=== PATIENT | female | born 1985 | race Hispanic/Latino ===

== ENCOUNTER 2025-03-19 17:50 | Emergency (ER) | payer OTHER ==
[~2025-03-19] VITALS: Ht 149.9 cm; Wt 74.8 kg
--- NOTE | 2025-03-19 18:07 | ERN ---
ED Note History of Present Illness Stated Complaint: PELVIC PAIN Chief Complaint: Pelvic Pain Time Seen by MD: 17:57 Time Seen by Midlevel: 18:00 Dictation: Ms. Yates is a 39-year-old female with no reported chronic health issues who presented to the emergency department this evening for evaluation of pelvic pain. She reports 3-4 days of tenderness of the labia. He states last night she noticed some white/PCP discharge without odor. She states that her reported that he had cheated on her and has a sexually transmitted infection. She does not know if he has yet received treatment. He denies having fever, chills, chest pain, palpitations, edema, shortness of breath, abdominal pain, nausea, vomiting, diarrhea, dysuria, headache, or dizziness. Allergies: Coded Allergies: No Known Drug Allergies (Unverified Allergy, Unknown, 03/19/25) Emergency Care RESIDENT PHYSICIAN IN RADIOLOGY: None Home Meds Active Scripts Metronidazole (Metronidazole) 500 Mg Tablet, 1 TAB PO BID for 7 Days, #14 TAB 0 Refills Prov:BROCK CUBA NP 03/19/25 Doxycycline Hyclate (Doxycycline Hyclate) 100 Mg Capsule, 1 CAP PO BID for 7 Days, #14 CAP 0 Refills Prov:BROCK CUBA NP 03/19/25 Past Medical History Surgical History: None PSYCH History: no pertinent psych hx Social History: Negative RN Note Reviewed/Agreed w/PFSH: Yes Review of System Dictation REVIEW OF SYSTEMS: CONSTITUTIONAL: Patient denies fevers, chills, sweats and weight changes. EYES: Patient denies any visual symptoms. EARS, NOSE, AND THROAT: No difficulties with hearing. No symptoms of rhinitis or sore throat. CARDIOVASCULAR: Patient denies chest pains, palpitations, orthopnea and paroxysmal nocturnal dyspnea. RESPIRATORY: No dyspnea on exertion, no wheezing or cough. GI: No nausea, vomiting, diarrhea, constipation, abdominal pain, hematochezia or melena. : No urinary hesitancy or dribbling. No nocturia or urinary frequency. Reports labia tenderness/irritation. Reports vaginal discharge that is white/paste the without odor. BP tested positive for STI does not know the specific MUSCULOSKELETAL: No myalgias or arthralgias. NEUROLOGIC: No chronic headaches, no seizures. Patient denies numbness, tingling or weakness. PSYCHIATRIC: Patient denies problems with mood disturbance. No problems with anxiety. ENDOCRINE: No excessive urination or excessive thirst. DERMATOLOGIC: Patient denies any rashes or skin changes. Initial Vital Sign VS Vital Signs Date Time Temp Pulse Resp B/P (MAP) Pulse Ox O2 Delivery O2 Flow Rate FiO2 03/19/25 18:05 99.0 78 16 139/87 98 Room Air* 0 21 Physical Exam Dictation Vital signs: Reviewed. Afebrile Constitutional: No acute distress. Non-toxic appearing. Head/Face: Normocephalic, atraumatic. Eyes: Periorbital areas with no swelling, redness, or edema. Lids and lashes are normal. Conjunctival injection is absent. Sclera anicteric. Pupils equal, round, reactive to light. ENT: Pinnas intact and no signs of trauma or erythema. Ear canals clear and no discharge. TMs no erythema. No nasal discharge or bleeding noted. Oropharynx with no exudate, redness, swelling, masses, exudates, or evidence of o bstruction. Uvula midline. Mucous membranes moist. Neck: Trachea midline, no masses palpated, and no cervical lymphadenopathy. No swelling. Supple, full range of motion. Chest/Axilla: No tenderness, no crepitus, no paradoxical movement, no retractions. Cardiovascular: Regular rate, regular rhythm, no murmur, no gallops. Symmetric pulses. No peripheral edema. Respiratory: Respirations even and unlabored. Lung sounds clear; no wheezes, rales or rhonchi. Gastrointestinal: Inspection is normal. No distention is appreciated. Bowel sounds are normal. No mass or organomegaly . There is no tenderness. No rebound. No rigidity. No voluntary or involuntary guarding. No Jett's sign. : Vaginal discharge white Neurological: Normal speech, gross motor function intact, gross sensory function intact. No focal weakness/Paresthesia. Musculoskeletal/Extremities: All extremities have full range of motion, no pain or tenderness on palpation. Symmetric pulses. Integumentary: Intact. Skin is normal color, warm and dry. Cap refill less than 3 seconds. Results (Laboratory/Radiology) Laboratory/Radiology Laboratory Tests Test 03/19/25 18:12 Urine Color COLORLESS (YELLOW) Urine Appearance CLEAR (CLEAR) Urine pH 5.5 (5.0-8.0) Urine Specific [place] 1.003 (1.001-1.031) Urine Protein NEGATIVE mg/dL (NEGATIVE) Urine Glucose (UA) NEGATIVE mg/dL (NEGATIVE) Urine Ketones 10 mg/dL (NEGATIVE) H Urine Occult Blood +- (TRACE) (NEGATIVE) H Urine Nitrate NEGATIVE (NEGATIVE) Urine Bilirubin NEGATIVE mg/dL (NEGATIVE) Urine Urobilinogen 0.2 mg/dL (0.2-1.0) Urine Leukocyte Esterase NEGATIVE Kody/uL Urine HCG, Qualitative NEGATIVE (NEGATIVE) ED Course ED Course Orders Procedure Category Date Status Time Urinalysis Profile LAB 03/19/25 In Process 18:05 ,Urine Test LAB 03/19/25 In Process 18:05 Ceftriaxone 500mg PHA 03/19/25 In Process Vial (Rocephin 500mg I 18:30 Doxycycline Hyclate PHA 03/19/25 In Process (Doxycycline Hyclate 18:30 Metronidazole (Flagyl) PHA 03/19/25 In Process 18:30 Chlamydia & Gc Pcr JULISA 03/19/25 Logged 18:19 Hiv 1-2 W/Reflex To LAB 03/19/25 In Process Confirm 18:19 Current Medications Medications (Trade) Dose Ordered Sig/Malu Route PRN Reason Start Time Stop Time Status Last Admin Dose Admin Ceftriaxone Sodium (Rocephin 500mg Inj) 500 mg ONCE IM 03/19/25 18:30 03/19/25 23:59 03/19/25 18:36 Doxycycline Hyclate (Doxycycline Hyclate) 100 mg ONCE PO 03/19/25 18:30 03/19/25 23:59 03/19/25 18:36 Metronidazole (flaGYL) 500 mg ONCE PO 03/19/25 18:30 03/19/25 23:59 03/19/25 18:36 Vital Signs Date Time Temp Pulse Resp B/P (MAP) Pulse Ox O2 Delivery O2 Flow Rate FiO2 03/19/25 18:05 99.0 78 16 139/87 98 0 03/19/25 18:05 99.0 78 16 139/87 98 Room Air* 0 21 Uneventful ED course. Vital signs remained stable. He received doses Flagyl, doxycycline, and Rocephin for presumed treatment for STI. She states her significant other tested positive for sexually transmitted infection but she does not know type/details. HCG negative findings discussed patient all questions Medical Decision Making MDM MDM: Differential diagnosis: STI, UTI Rationale: Tests considered and ordered secondary to shared decision making include: Previous outside records reviewed: Old ER visits. Risk of complication and/or morbidity or mortality of patient management: None Medications-Per medication reconciliation Need for hospitalization: Patient does not meet criteria for hospitalization. Need for emergency major/minor surgery: No There are no social concerns with this patient. Prescription drug management: Flagyl, doxycycline Prescriptions will include symptomatic care Patient's prior external medical records from other ER visits were reviewed by me as indicated. Prior testing and results from previous visits were reviewed. Prior tests were taken into account with medical decision making and resource utilization, independent historian/historians were used to obtain complete medical history. I independently interpreted the test that were performed, results were reviewed by me and considered findings on radiology if ordered. Medical management and examination interpretation discussions were had by me with other qualified healthcare professionals as indicated for the patient's care. DX & DISP Disposition: Discharge Departure Impression: Primary Impression: Sexually transmitted disease (STD) Condition: Stable Scripts Metronidazole (Metronidazole) 500 Mg Tablet 1 TAB PO BID for 7 Days, #14 TAB 0 Refills Prov: BROCK CUBA NP 03/19/25 Doxycycline Hyclate (Doxycycline Hyclate) 100 Mg Capsule 1 CAP PO BID for 7 Days, #14 CAP 0 Refills Prov: BROCK CUBA NP 03/19/25 Additional Instructions: Due to your symptoms and exposure risk he will be started on treatment for sexually transmitted infection/possible pelvic inflammatory disease. You will take doxycycline twice daily for14 days as well as Flagyl 500 mg twice daily14 days. Take medications until course completed. Avoid sex until you and your partner/partner are fully treated and cleared. Follow up with repeat testing and check for cure in 1-3 months. He will be advised by phone of any abnormal results. Should you experience fever, worsening pelvic pain, nausea/vomiting, fainting or severe weakness return to the emergency department or seek immediate care. Follow up with your PCP and/or case maker Time of Disposition: 18:26 BROCK CUBA NP March 19, 2025 18:07
[2025-03-19] MEDS ORDERED: DOXY100C5 PO (18:24)
[2025-03-19] MEDS ORDERED: METR-172 PO (18:24)
[2025-03-19 18:29] LABS: APPEARANCE,URINE CLEAR (CLEAR); BILIRUBIN,URINE NEGATIVE (NEGATIVE); COLOR,URINE COLORLESS (YELLOW); GLUCOSE, URINE (UA) NEGATIVE (NEGATIVE); KETONES,URINE 10 mg/dL (NEGATIVE); LEUKOCYTE ESTERASE ,URINE NEGATIVE Leu/uL (NEGATIVE); NITRATE,URINE NEGATIVE (NEGATIVE); PH,URINE 5.5 (5.0-8.0); PROTEIN,URINE NEGATIVE (NEGATIVE); UROBILINOGEN,URINE 0.2 mg/dL (0.2-1.0)
[2025-03-19 18:31] LABS: HCG,QUALITATIVE URINE NEGATIVE (NEGATIVE)
[2025-03-19 18:32] LABS: ADD UA MICROSCOPIC YES
[2025-03-19] MEDS: metRONIDazole 500 MG TABLET PO SCH (18:36)
[2025-03-19] MEDS: CEFTRIAXONE 500MG VIAL IM SCH (18:36)
[2025-03-19] MEDS: DOXYCYCLINE HYCLATE 100 MG TABLET PO SCH (18:36)
[2025-03-19 19:06] LABS: BACTERIA,URINE RARE /HPF (None Seen); MUCUS,URINE RARE LPF (None Seen); SQUAMOUS EPITHELIAL CELL,UR FEW /HPF (0-2); WBC,URINE 0-1 /HPF (0-1)
[2025-03-19 19:12] LABS: HIV 1&2 ANTIBODY Non-Reactive (Negative); HIV-1 p24 Antigen Non-Reactive (Negative)
[2025-03-19 19:23] VITALS: BP 130/82; PULSE 78; RESP 16; TEMP 98.5; O2SAT 98
== END 2025-03-19 19:23 | disposition home or self-care (01) ==
LOC: EDH 18:07
DX: A64 Unspecified sexually transmitted disease (principal); Z79.899 Other long term (current) drug therapy
CPT/HCPCS: 99283; 87491; 87591; 86701; 87390; 81001; 81025; 36415; 96372; J0696

== ENCOUNTER 2025-05-18 17:18 | Emergency (ER) | payer OTHER ==
[~2025-05-18] VITALS: Ht 152.4 cm; Wt 72.6 kg
[~2025-05-18 17:18] MED LIST: DOXY100C5 PO; METR-172 PO
--- NOTE | 2025-05-18 21:14 | ERN ---
General Chief Complaint: Hand Problem/Injury Stated Complaint: LT HAND TINGLING/NUMB FOR 3-4 DAYS Time Seen by MD: 17:21 Time Seen by Midlevel: 17:21 Source: patient History of Present Illness Initial Comments 39-year-old female who presents to the emergency department due to left hand/fingers tingling x4 days. Denies numbness or tingling radiating up the arm, left arm pain, decreased range of motion, neck pain or further associated symptoms. 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 Patient denies significant past medical history. Allergies: Coded Allergies: No Known Drug Allergies (Unverified Allergy, Unknown, 03/19/25) Home Meds Active Scripts Metronidazole (Metronidazole) 500 Mg Tablet, 1 TAB PO BID for 7 Days, #14 TAB 0 Refills Prov:BROCK CUBA NP 03/19/25 Doxycycline Hyclate (Doxycycline Hyclate) 100 Mg Capsule, 1 CAP PO BID for 7 Days, #14 CAP 0 Refills Prov:BROCK CUBA NP 03/19/25 Past Medical History Past Medical History: No Pertinent History Past Surgical History: None Social History Social History: Negative ROS Dictation Constitutional: Negative for fever,chills, and weight loss Eyes: Negative for injury, pain,redness, and discharge ENT: Negative for injury,pain or swelling Cardiovascular: Negative for chest pain, palpitations, and edema Respiratory: Negative for shortness of breath, cough, and wheezing, Abdomen/GI: Negative for abdominal pain, nausea, vomiting, diarrhea, and constipation Back: Negative for injury and pain : Negative for painful urination, bleeding or discharge MS/Extremity: Positive for left fingers tingling Negative for injury and deformity Skin: Negative for rash, and discoloration Neuro: Negative for headache, weakness, numbness, tingling, and seizure Psych: Negative for suicide ideation, homicidal ideation, and hallucinations Physical Exam Physical Exam Dictation General: awake, alert, no acute distress Head/Face: Normocephalic, atraumatic Eyes: PERRL, EOMI, normal conjunctiva ENT: oral cavity clear, oral mucosa moist Neck: Supple, normal range of motion Cardiovascular: RRR, normal S1/S2 Respiratory: CTAB, no respiratory distress Skin: Warm, dry, normal turgor, no rash MS/Extremity: Pulses equal, no cyanosis, neurovascular intact, FROM. Left upper extremity normal range of motion, no tenderness, normal sensation. Neuro: COAx4, GCS 15, no neurological deficits, normal gait Psych: Normal behavior, mood, and affect normal Results Laboratory and Microbiology Lab and Micro Result Laboratory Tests Test 05/18/25 19:39 Serum Test, Qualitative NEGATIVE (NEGATIVE) Labs Reviewed?: Yes EKG/XRAY/US/CT/MRI X-RAY Comment REASON: pain ORDERING PHYSICIAN: VINAYAK GEORGE PROCEDURE: CERV 2 3VW - CERV SPINE 2-3VWS EXAM: CR Cervical spine, 3 views. CLINICAL HISTORY: Pain. COMPARISON: None provided. FINDINGS: Straightening of the expected cervical lordosis reflects paraspinal muscle spasm. Mild spondylosis. Moderate degenerative disc space narrowing at C5-C6. The remaining disc spaces are maintained. Normal vertebral body heights. No acute fracture. The prevertebral soft tissues are within normal limits. The included lungs are clear. IMPRESSION: No acute bony abnormality is evident. Straightening of the expected cervical lordosis reflects paraspinal muscle spasm. Mild spondylosis. Moderate degenerative disc space narrowing at C5-C6. /[place] DICTATED BY: VIJAY CALLOWAY Jr., MD DATE: 05/18/252226 [facility] MDM: Differential diagnosis: Carpal tunnel, cervical neuropathy, cubital tunnel Rationale: 39-year-old female who presents to the emergency department due to left hand/fingers tingling. Denies numbness or tingling radiating up the arm, left arm pain, decreased range of motion, neck pain or further associated symptoms. 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 Patient denies significant past medical history. Serum negative. Cervical x-rays obtained indicating mild spondylosis, moderate degenerative disc narrowing at C5-C6. Ketorolac administered in the ED. Patient was educated on findings and diagnosis. Advised to follow up with PCP. Return to the emergency department if any worsening symptoms. Patient verbalized understanding. Patient stable for discharge. There are no social concerns with this patient. I independently interpreted the test that were performed, results were reviewed by me and considered findings on radiology if ordered. Medical management and examination interpretation discussions were had by me with other qualified healthcare professionals as indicated for the patient's care. ED Course Orders Procedure Category Date Status Time Testing, LAB 05/18/25 Complete Serum Hcg 18:51 Cerv Spine 2-3vws RAD 05/18/25 Resulted 19:20 Ketorolac PHA 05/18/25 Complete Tromethamine 15mg/Ml 19:30 Current Medications Medications (Trade) Dose Ordered Sig/Malu Route PRN Reason Start Time Stop Time Status Last Admin Dose Admin Ketorolac Tromethamine (toRADol) 15 mg ONCE ONCE IM 05/18/25 19:30 05/18/25 19:31 DC 05/18/25 20:17 Vital Signs Date Time Temp Pulse Resp B/P (MAP) Pulse Ox O2 Delivery O2 Flow Rate FiO2 05/18/25 21:25 98.2 62 18 135/67 97 Room Air* 0 21 05/18/25 18:51 98.2 18 161/65 97 Room Air* 0 21 05/18/25 18:27 98.2 68 18 178/76 97 DX & DISP Disposition: Discharge Departure Impression: Primary Impression: Hand tingling Additional Impression: Neuropathy Condition: Stable Additional Instructions: Discharge home. Rest. Follow up with primary care in 24 hours. Return to the ER for any acute changes or worsening symptoms. If any medications were prescribed take as directed. Okay to continue home medications unless otherwise discussed during your visit in the emergency room today. Patient was also advised to follow-up with primary care physician in 1 to 2 days for continued monitoring. Referrals: SELF,REFERRAL (PCP) I performed the substantive portion of the visit. I have reviewed and personally made and approve the management plan that is documented in the notes by myself or the RAGHU. I acknowledge full responsibility for the patient's lauri gem[place] plan. VINAYAK GEORGE May 18, 2025 21:14
[2025-05-18 21:25] VITALS: BP 135/67; PULSE 62; RESP 18; TEMP 98.2; O2SAT 97
--- NOTE | 2025-05-18 21:27 | HMCIMG ---
EXAM: CR Cervical spine, 3 views. CLINICAL HISTORY: Pain. COMPARISON: None provided. FINDINGS: Straightening of the expected cervical lordosis reflects paraspinal muscle spasm. Mild spondylosis. Moderate degenerative disc space narrowing at C5-C6. The remaining disc spaces are maintained. Normal vertebral body heights. No acute fracture. The prevertebral soft tissues are within normal limits. The included lungs are clear. IMPRESSION: No acute bony abnormality is evident. Straightening of the expected cervical lordosis reflects paraspinal muscle spasm. Mild spondylosis. Moderate degenerative disc space narrowing at C5-C6. /[place]
== END 2025-05-18 21:27 | disposition home or self-care (01) ==
LOC: EDH 17:18
DX: R20.2 Paresthesia of skin (principal); G62.9 Polyneuropathy, unspecified; Z79.899 Other long term (current) drug therapy
CPT/HCPCS: 99284; 84703; 36415; 72040; 96372; J1885

== ENCOUNTER 2025-06-14 11:58 | Emergency (ER) | payer OTHER ==
[~2025-06-14] VITALS: Ht 149.9 cm; Wt 74.8 kg
--- NOTE | 2025-06-14 13:10 | ERN ---
ED Note History of Present Illness Stated Complaint: BUG BITES TO BLE Chief Complaint: Skin Rash/Abscess Time Seen by MD: 12:06 Time Seen by Midlevel: 12:11 Dictation: 39 y/o no medical problems coming in with complaints of insect bites to bilateral lower extremities that happened last night. Patient states she was outside in the cement. Denies any pain or drainage, complaining of only itchiness. Allergies: Coded Allergies: No Known Drug Allergies (Unverified Allergy, Unknown, 03/19/25) Home Meds Active Scripts Metronidazole (Metronidazole) 500 Mg Tablet, 1 TAB PO BID for 7 Days, #14 TAB 0 Refills Prov:BROCK CUBA NP 03/19/25 Doxycycline Hyclate (Doxycycline Hyclate) 100 Mg Capsule, 1 CAP PO BID for 7 Days, #14 CAP 0 Refills Prov:BROCK CUBA COPY CENTER OPERATOR 03/19/25 Past Medical History Past Medical History: No Pertinent History Surgical History: None Social History: Negative LMP: May 31, 2025 Review of System Dictation Constitutional: Negative for fever,chills, and weight loss Eyes: Negative for injury, pain,redness, and discharge ENT: Negative for injury,pain or swelling Cardiovascular: Negative for chest pain, palpitations, and edema Respiratory: Negative for shortness of breath, cough, and wheezing, Abdomen/GI: Negative for abdominal pain, nausea, vomiting, diarrhea, and constipation Back: Negative for injury and pain : Negative for injury, bleeding and discharge MS/Extremity: Negative for injury and deformity Skin: Insect bites and itchiness to bilateral lower extremities Neuro: Negative for headache, weakness, numbness, tingling, and seizure Psych: Negative for suicide ideation, homicidal ideation, and hallucinations Review of Systems: was completed Initial Vital Sign VS Vital Signs Date Time Temp Pulse Resp B/P (MAP) Pulse Ox O2 Delivery O2 Flow Rate FiO2 06/14/25 12:00 98.4 70 16 124/69 98 Room Air 0 Physical Exam Dictation General: awake, alert, NAD Head/Face: Normocephalic, atraumatic Eyes: PERRL, EOMI, vision at baseline ENT: oral cavity clear, TMs clear, no signs of infection Neck: Trachea midline, supple, no nuchal rigidity Cardiovascular: RRR, normal S1/S2, No MRGs, no JVD Respiratory: CTAB, no respiratory distress, No rales or wheezes Abdomen: Soft, non-tender, non-distended, normal bowel sounds, no guarding or rebound. Skin: Warm, dry, normal turgor, no rash, insect bite noted to bilateral lower extremity. No drainage. No pain. No open wounds no induration. No evidence of abscess or cellulitis MS/Extremity: Pulses equal, no cyanosis, neurovascular intact, FROM Neuro: COAx4, GCS 15, strength 5/5, CN 2-12 intact, normal cerebellar exam, normal gait, Psych: Normal behavior, mood, and affect normal ED Course ED Course Orders Procedure Category Date Status Time Diphenhydramine Hcl PHA 06/14/25 Complete (Benadryl Cap) 12:07 Hydrocortisone 1% PHA 06/14/25 Complete Cream (Cortrisone 1% C 12:07 Current Medications Medications (Trade) Dose Ordered Sig/Malu Route PRN Reason Start Time Stop Time Status Last Admin Dose Admin Diphenhydramine HCl (BENAdryl CAP) 50 mg ONCE STAT PO 06/14/25 12:07 06/14/25 12:12 DC Hydrocortisone (corTRIsone 1% CREAM) ONCE STAT TP 06/14/25 12:07 06/14/25 12:12 DC Vital Signs Date Time Temp Pulse Resp B/P (MAP) Pulse Ox O2 Delivery O2 Flow Rate FiO2 06/14/25 12:00 98.4 70 16 124/69 98 Room Air 0 Medical Decision Making MDM MDM: 39 y/o no medical problems coming in with complaints of insect bites to bilateral lower extremities that happened last night. Patient states she was outside in the cement. Denies any pain or drainage, complaining of only itchiness. Patient was given Benadryl a hydrocortisone ointment. Discussed with the patient she took Benadryl as needed for the itchiness and apply the hydrocortisone also with the itchiness and she can also apply calamine lotion. Patient verbalized understanding, answered all questions. Differential diagnosis: Cellulitis, insect bite, Rationale: Tests considered and ordered secondary to shared decision making include: Previous outside records reviewed: Old ER visits. Risk of complication and/or morbidity or mortality of patient management: None Medications-Per medication reconciliation Need for hospitalization: Patient does not meet criteria for hospitalization. Need for emergency major/minor surgery: No There are no social concerns with this patient. Prescription drug management Prescriptions will include symptomatic care Patient's prior external medical records from other ER visits were reviewed by me as indicated. Prior testing and results from previous visits were reviewed. Prior tests were taken into account with medical decision making and resource utilization, independent historian/historians were used to obtain complete medical history. I independently interpreted the test that were performed, results were reviewed by me and considered findings on radiology if ordered. Medical management and examination interpretation discussions were had by me with other qualified healthcare professionals as indicated for the patient's care. DX & DISP Disposition: Discharge Departure Impression: Primary Impression: Insect bites Condition: Stable Additional Instructions: Wash the area with soap and water. Symptoms using ice or cold compresses can help with the itchiness. You can try also calamine lotion [id number] for itchiness. And take Benadryl as needed. Referrals: SELF,REFERRAL (PCP) Time of Disposition: 13:09 I have reviewed the case, and I agree with, Diagnosis and Plan CLINT LISA NP Jun 14, 2025 13:10
[2025-06-14 13:15] VITALS: BP 124/69; PULSE 70; RESP 16; TEMP 98.5; O2SAT 98
--- NOTE | 2025-06-14 13:19 | NUR ---
D/C PENDING MED FROM [facility]
== END 2025-06-14 13:59 | disposition home or self-care (01) ==
LOC: EDH 11:58
DX: S80.861A Insect bite (nonvenomous), right lower leg, initial encounter (principal); S80.862A Insect bite (nonvenomous), left lower leg, initial encounter; W57.XXXA Bitten or stung by nonvenomous insect and other nonvenomous arthropods, initial encounter
CPT/HCPCS: 99283; Q0163